=== PATIENT | female | born 1980 | race Caucasian/White ===

== ENCOUNTER 2017-10-09 09:23 | Outpatient (CLI) | payer MEDICARE, BC ==
--- NOTE | 2017-10-09 11:54 | CT ---
CT BRAIN NONCONTRAST: DATE: 10-09-17 TIME: 9:30 a.m. HISTORY: 37-year-old female with headache. Follow up [employer] shunt. History of multiple shunt revisions. 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 COMPARISON: 01-18-15, 04-16-14, 03-23-11. FINDINGS: Between 03-23-11 and 04-16-14, the ventricles became smaller in volume, becoming collapsed on 04-16-14, a nd remaining that way on 01-18-15, raising the possibility of over-shunting. Currently, the lateral ve ntricles are slightly less collapsed than they were on 01-18-15, although the frontal horns do remain narrowed, especially the right. Again noted is the nodular, periventricular heterotopic gómez matter l ining the trigones and occipital horns of the lateral ventricles bilaterally. The fourth ventricle is within normal limits in size. The basal cisterns are patent and clear. There is an asymmetrical bronwyn cisterna magna. There is no interval change in positions of the two [employer] shunt catheters. One of them enters through a right frontal zee hole, with distal tip in the right frontal horn, very close to th e foramen of [place]ro, slightly to the right of midline. The other one enters through a right temporopar ietal zee hole, with distal tip close to the lateral edge of the trigone of the right lateral ventri carmina, probably slightly outside of it. There is no acute intraaxial or extraaxial hemorrhage. No mass effect or midline shift. No additional changes to the calvarium. The visualized portions of the paranasal sinuses and the bilateral tympano mastoid cavities are grossly clear. IMPRESSION: 1. Two right sided ventriculoperitoneal shunt catheters. The distal tip of the more anterior one is i ntraventricular, while the most posterior one is probably extraventricular. 2. No hydrocephalus; no evidence of shunt malfunction. 3. The lateral ventricles are now slightly less collapsed then they were on 01-18-15. 4. Periventricular gómez matter heterotopia. SAI Crandall POS: [facility]
--- NOTE | 2017-10-09 11:56 | RAD ---
SHUNTOGRAM SERIES: History: G91.9 hydrocephalus. Technique: Skull AP, skull lateral, cervical spine AP, chest AP, and abdomen upright. FINDINGS: Shunt catheter is in place. No evidence of fracture. No kinking of catheter. The distal catheter tip is not well seen as the pelvis is excluded from the examination. IMPRESSION: Likely intact shunt catheter tubing, difficult to fully evaluate on the chest radiograph. The tip is not well imaged in the pelvis. Follow up pelvis radiograph is recommended. POS: [facility]
== END 2017-10-09 09:24 | disposition home or self-care (01) ==
LOC: TBSIIMAG 09:23
PROVIDERS: ATTEND Surgery
DX: G91.9 Hydrocephalus, unspecified (principal); Q04.8 Other specified congenital malformations of brain; Z98.2 Presence of cerebrospinal fluid drainage device
CPT/HCPCS: 70450; 75809

== ENCOUNTER 2022-04-03 10:35 | Inpatient (IN) | payer MEDICARE, BC ==
[2022-04-03 12:07] LABS: ALT (SGPT) 11 U/L (8-55); AST (SGOT) 9 U/L (5-34); Albumin 3.2 g/dL (3.5-5.0); Alkaline Phosphatase 71 U/L (40-110); Anion Gap 14 mmol/L (10-20); BUN (Urea Nitrogen) 30 mg/dL (7.0-18.7); Bilirubin, Total Less than 0.2 mg/dL (0.2-1.2); Calc. Creatinine Clearance 0 mL/min (70-130); Calcium 8.6 mg/dL (7.8-10.44); Carbon Dioxide 24 mmol/L (22-29); Chloride 101 mmol/L (98-107); Globulin 2.7 g/dL (2.4-3.5); Glucose 106 mg/dL (70-105); Potassium 4.1 mmol/L (3.5-5.1); Protein, Total 5.9 g/dL (6.0-8.3); Sodium 135 mmol/L (136-145)
[2022-04-03 12:32] LABS: Hemoglobin 4.8 g/dL (12.0-16.0); Mean Corpuscular HGB CONC 33.6 g/dL (32.0-36.0); Mean Corpuscular Hemoglobin 27.2 pg (27.0-31.0); Mean Corpuscular Volume 80.8 fL (78.0-98.0); Mean Platelet Volume 6.5 fL (7.4-10.4); Platelet Count 385 thou/uL (130-400); RBC Distribution Width 15.3 % (11.5-14.5); Red Blood Cell (RBC) Count 1.77 mill/uL (4.20-5.40); Reflex for Review?? YES; White Blood Cell (WBC) Count 5.9 thou/uL (4.8-10.8)
[2022-04-03 12:35] LABS: #Lymphocytes 0.9 thou/uL (1.20-3.40); #Monocytes 0.3 thou/uL (0.11-0.59); #Neutrophils 4.6 thou/uL (1.40-6.50); %Basophils 0.3 % (0.0-1.0); %Eosinophils 0.8 % (0.0-10.0); %Lymphocytes 15.5 % (21.0-51.0); %Monocytes 5.6 % (0.0-10.0); %Neutrophils 77.8 % (42.0-75.0); MDiff Complete? YES; Platelet Morphology Comment Appears Adequate; Polychromasia SLIGHT = 2-3 cells (100X) (0-2/hpf)
[2022-04-03] MEDS ORDERED: Pantoprazole 40 MG VIAL ONE (13:55)
[2022-04-03 14:46] LABS: Reticulocyte Count 4.5 % (0.5-1.5)
[2022-04-03 15:01] LABS: BHCG - Serum Negative (NEGATIVE); Pregs Control Background? CLEAR/WHITE (CLR/WHITE); Pregs Control Bar Appear? YES (CONTROL BAR)
[2022-04-03 15:14] LABS: Iron 107 ug/dL (50-170); Iron Binding Capacity, Total 286 mcg/dL (265-497)
[2022-04-03 15:32] LABS: Ferritin 14.99 ng/mL (10-291); Thyroid Stimulating Hormone 1.8523 uIU/mL (0.35-4.94)
[2022-04-03] MEDS ORDERED: Folic Acid 1 MG TAB PO SCH (16:30)
[2022-04-03 16:51] LABS: SARS-CoV-2 NAA Rapid Test Not Detected (NotDetected)
[2022-04-03] MEDS ORDERED: GoLYTELY 4,000 ml Bottle PO SCH (20:30)
[2022-04-03] MEDS: levETIRAcetam 500 MG TAB PO SCH (20:34)
[2022-04-03] MEDS: lamoTRIgine 100 MG TAB PO SCH (20:35)
[2022-04-03] MEDS: Lorazepam 1 MG TAB PO PRN (20:35)
[2022-04-03] MEDS: lamoTRIgine 25 MG TAB PO SCH (20:35)
[2022-04-03 23:01] LABS: Hemoglobin 7.6 g/dL (12.0-16.0)
[2022-04-04 02:15] LABS: Platelet Count 315 thou/uL (130-400)
[2022-04-04 04:31] LABS: #Basophils 0.1 thou/uL (0.0-0.2); #Eosinphils 0.1 thou/uL (0.0-0.7); #Monocytes 0.4 thou/uL (0.11-0.59); #Neutrophils 5.5 thou/uL (1.40-6.50); %Basophils 0.7 % (0.0-1.0); %Eosinophils 0.9 % (0.0-10.0); %Lymphocytes 14.6 % (21.0-51.0); %Monocytes 5.1 % (0.0-10.0); %Neutrophils 78.6 % (42.0-75.0); Hemoglobin 7.9 g/dL (12.0-16.0); Mean Corpuscular HGB CONC 33.3 g/dL (32.0-36.0); Mean Corpuscular Hemoglobin 28.2 pg (27.0-31.0); Mean Corpuscular Volume 84.7 fL (78.0-98.0); Mean Platelet Volume 6.6 fL (7.4-10.4); Platelet Count 338 thou/uL (130-400); RBC Distribution Width 14.9 % (11.5-14.5)
[2022-04-04 04:58] LABS: Anion Gap 17 mmol/L (10-20); BUN (Urea Nitrogen) 19 mg/dL (7.0-18.7); Calc. Creatinine Clearance 101 mL/min (70-130); Calcium 8.6 mg/dL (7.8-10.44); Carbon Dioxide 22 mmol/L (22-29); Chloride 102 mmol/L (98-107); Glucose 105 mg/dL (70-105); Potassium 4.3 mmol/L (3.5-5.1); Sodium 137 mmol/L (136-145)
[2022-04-04] MEDS ORDERED: GoLYTELY 4,000 ml Bottle PO SCH (07:00)
[2022-04-04] MEDS ORDERED: Iopamidol-370 76% 500 ML 1 ML ONE (09:02)
[2022-04-04] MEDS: Folic Acid 1 MG TAB PO SCH (10:03)
[2022-04-04] MEDS: lamoTRIgine 100 MG TAB PO SCH ×2 (10:03→21:51)
[2022-04-04] MEDS: lamoTRIgine 25 MG TAB PO SCH ×2 (10:04→21:51)
[2022-04-04] MEDS ORDERED: Non-Formulary Item 1 EACH (Cyclobenzaprine Hcl [Cyclobenzaprine Hcl] 5 MG Tablet) PO PRN (10:14)
[2022-04-04] MEDS ORDERED: Cyclobenzaprine 10 MG TAB PO PRN (10:18)
[2022-04-04] MEDS ORDERED: Fentanyl 100 MCG/2 ML VIAL ONE (12:13)
[2022-04-04] MEDS ORDERED: Lidocaine 1% PF 5 ML VIAL ONE (12:25)
[2022-04-04] MEDS ORDERED: PROPOFOL 200 MG/20 ML VIAL ONE (12:25)
[2022-04-04] MEDS: Pantoprazole 80 MG, Admixture Fee 1 EACH in Sodium Chloride 0.9% 100 ML IVPB SCH (16:13)
[2022-04-04] MEDS: levETIRAcetam 500 MG TAB PO SCH ×2 (16:16→21:51)
[2022-04-04] MEDS: Lorazepam 1 MG TAB PO PRN (21:51)
[2022-04-04] MEDS: Acetaminophen 325 MG TAB PO PRN (22:03)
[2022-04-05] MEDS: Pantoprazole 80 MG, Admixture Fee 1 EACH in Sodium Chloride 0.9% 100 ML IVPB SCH ×2 (01:52→16:26)
[2022-04-05 04:20] LABS: Hemoglobin 6.6 g/dL (12.0-16.0)
[2022-04-05] MEDS: Folic Acid 1 MG TAB PO SCH (10:10)
[2022-04-05] MEDS: levETIRAcetam 500 MG TAB PO SCH ×2 (10:11→20:02)
[2022-04-05] MEDS: lamoTRIgine 100 MG TAB PO SCH ×2 (10:11→20:02)
[2022-04-05] MEDS: lamoTRIgine 25 MG TAB PO SCH ×2 (10:11→20:03)
[2022-04-05 10:23] LABS: Hemoglobin 8.4 g/dL (12.0-16.0); Platelet Count 243 thou/uL (130-400)
[2022-04-05 17:08] LABS: Hemoglobin 8.2 g/dL (12.0-16.0)
[2022-04-05] MEDS: Acetaminophen 325 MG TAB PO PRN (22:30)
[2022-04-05] MEDS: Lorazepam 1 MG TAB PO PRN (22:30)
[2022-04-06] MEDS: Pantoprazole 80 MG, Admixture Fee 1 EACH in Sodium Chloride 0.9% 100 ML IVPB SCH (02:28)
[2022-04-06 06:13] LABS: #Eosinphils 0.1 thou/uL (0.0-0.7); #Lymphocytes 0.7 thou/uL (1.20-3.40); #Monocytes 0.2 thou/uL (0.11-0.59); #Neutrophils 2.4 thou/uL (1.40-6.50); %Basophils 0.1 % (0.0-1.0); %Eosinophils 2.2 % (0.0-10.0); %Lymphocytes 21.8 % (21.0-51.0); %Monocytes 5.5 % (0.0-10.0); %Neutrophils 70.4 % (42.0-75.0); Hemoglobin 8.1 g/dL (12.0-16.0); Mean Corpuscular HGB CONC 34.1 g/dL (32.0-36.0); Mean Corpuscular Hemoglobin 29.9 pg (27.0-31.0); Mean Corpuscular Volume 87.8 fL (78.0-98.0); Mean Platelet Volume 6.2 fL (7.4-10.4); Platelet Count 271 thou/uL (130-400); RBC Distribution Width 14.6 % (11.5-14.5); Red Blood Cell (RBC) Count 2.72 mill/uL (4.20-5.40); White Blood Cell (WBC) Count 3.4 thou/uL (4.8-10.8)
[2022-04-06 06:33] LABS: Anion Gap 12 mmol/L (10-20); BUN (Urea Nitrogen) 9 mg/dL (7.0-18.7); Calc. Creatinine Clearance 106 mL/min (70-130); Calcium 8.4 mg/dL (7.8-10.44); Carbon Dioxide 26 mmol/L (22-29); Chloride 104 mmol/L (98-107); Glucose 79 mg/dL (70-105); Potassium 3.6 mmol/L (3.5-5.1); Sodium 138 mmol/L (136-145)
[2022-04-06] MEDS ORDERED: Sodium Chloride 0.9% 1,000 ML IV SCH ×2 (07:45→23:59)
[2022-04-06 08:15] LABS: #Eosinphils 0.1 thou/uL (0.0-0.7); #Lymphocytes 0.6 thou/uL (1.20-3.40); #Monocytes 0.2 thou/uL (0.11-0.59); #Neutrophils 3.2 thou/uL (1.40-6.50); %Basophils 0.6 % (0.0-1.0); %Eosinophils 1.4 % (0.0-10.0); %Lymphocytes 14.9 % (21.0-51.0); %Monocytes 5.8 % (0.0-10.0); %Neutrophils 77.3 % (42.0-75.0); Hemoglobin 6.6 g/dL (12.0-16.0); Mean Corpuscular HGB CONC 33.7 g/dL (32.0-36.0); Mean Corpuscular Hemoglobin 29.8 pg (27.0-31.0); Mean Corpuscular Volume 88.2 fL (78.0-98.0); Mean Platelet Volume 6.2 fL (7.4-10.4); Platelet Count 244 thou/uL (130-400); RBC Distribution Width 14.6 % (11.5-14.5); Red Blood Cell (RBC) Count 2.21 mill/uL (4.20-5.40); White Blood Cell (WBC) Count 4.1 thou/uL (4.8-10.8)
[2022-04-06] MEDS: lamoTRIgine 25 MG TAB PO SCH ×2 (08:28→21:15)
[2022-04-06] MEDS: lamoTRIgine 100 MG TAB PO SCH ×2 (08:28→21:15)
[2022-04-06] MEDS: Folic Acid 1 MG TAB PO SCH (08:28)
[2022-04-06] MEDS: levETIRAcetam 500 MG TAB PO SCH ×2 (08:28→21:15)
[2022-04-06] MEDS ORDERED: diphenhydrAMINE 50 MG/ML VIAL IVP PRN (10:39)
[2022-04-06] MEDS: Albumin 25% 25 GM/100 ML BOT IVPB SCH (10:44)
[2022-04-06] MEDS: Sodium Chloride 0.9% 1,000 ML IV SCH ×2 (10:44→22:15)
[2022-04-06] MEDS ORDERED: PROPOFOL 200 MG/20 ML VIAL ONE (13:44)
[2022-04-06] MEDS ORDERED: Lidocaine 1% PF 5 ML VIAL ONE (13:44)
[2022-04-06] MEDS ORDERED: Ondansetron PF 4 MG/2 ML Vial ONE (13:44)
[2022-04-06] MEDS ORDERED: Succinylcholine 200 MG/10 ml SYRINGE FS ONE (13:44)
[2022-04-06] MEDS ORDERED: Calcium Chloride 1 GM/10 ML Abboject SYRINGE ONE (13:56)
[2022-04-06] MEDS ORDERED: EPINEPHrine 1 MG/10 ML Abboject SYRINGE ONE (13:56)
[2022-04-06] MEDS ORDERED: ePHEDrine 50 MG/ML VIAL ONE (13:56)
[2022-04-06] MEDS ORDERED: Rocuronium Bromide 10 MG/ML (10ML VIAL) ONE (13:56)
[2022-04-06] MEDS ORDERED: Iron, Sodium Ferric Gluconate 250 MG in Sodium Chloride 0.9% 250 ML 250 ML IVPB SCH (14:00)
[2022-04-06] MEDS ORDERED: fentaNYL Citrate/PF 100 MCG/2 ML SYRINGE ONE (15:05)
[2022-04-06] MEDS ORDERED: Midazolam HCl 2 mg/2 ml Vial ONE (16:59)
[2022-04-06] MEDS ORDERED: Sodium Bicarb 50 MEQ/50 ML Abboject 8.4% SYRINGE ONE (16:59)
[2022-04-06] MEDS ORDERED: Propofol BOLUS 1,000 MG/100 ML VIAL IV PRN (18:45)
[2022-04-06] MEDS ORDERED: Propofol 1,000 MG/100 ML VIAL IV PRN (18:45)
[2022-04-06] MEDS ORDERED: Morphine 2 MG/ML VIAL SLOW IVP PRN (18:45)
[2022-04-06] MEDS ORDERED: Ventilator Sedation Protocol 1 EACH FS SCH (18:45)
[2022-04-06] MEDS ORDERED: DISCONTINUE PREVIOUS NARCOTIC PAIN MEDICATIONS AND BENZODIAZEPINES FS SCH (18:45)
[2022-04-06] MEDS: Lorazepam 2 MG/ML VIAL SLOW IVP PRN ×2 (18:45→22:42)
[2022-04-06] MEDS ORDERED: Fentanyl BOLUS 250 ML IVPB PRN (18:45)
[2022-04-06] MEDS: fentaNYL Citrate-0.9 % NaCl/PF 100 ML IV SCH (18:46)
[2022-04-06 20:04] LABS: #Lymphocytes 0.4 thou/uL (1.20-3.40); #Monocytes 0.2 thou/uL (0.11-0.59); #Neutrophils 5.4 thou/uL (1.40-6.50); %Basophils 0.1 % (0.0-1.0); %Eosinophils 0.8 % (0.0-10.0); %Lymphocytes 6.7 % (21.0-51.0); %Monocytes 3.6 % (0.0-10.0); %Neutrophils 88.8 % (42.0-75.0); Hemoglobin 11.7 g/dL (12.0-16.0); Mean Corpuscular HGB CONC 33.7 g/dL (32.0-36.0); Mean Corpuscular Hemoglobin 30.7 pg (27.0-31.0); Mean Corpuscular Volume 91.1 fL (78.0-98.0); Mean Platelet Volume 6.9 fL (7.4-10.4); Platelet Count 193 thou/uL (130-400); RBC Distribution Width 13.5 % (11.5-14.5); Red Blood Cell (RBC) Count 3.82 mill/uL (4.20-5.40); White Blood Cell (WBC) Count 6.1 thou/uL (4.8-10.8)
[2022-04-06 20:22] LABS: ALT (SGPT) 77 U/L (8-55); AST (SGOT) 109 U/L (5-34); Alkaline Phosphatase 38 U/L (40-110); Anion Gap 17 mmol/L (10-20); BUN (Urea Nitrogen) 14 mg/dL (7.0-18.7); Bilirubin, Total 1.5 mg/dL (0.2-1.2); Calc. Creatinine Clearance 109 mL/min (70-130); Calcium 8.1 mg/dL (7.8-10.44); Carbon Dioxide 20 mmol/L (22-29); Chloride 108 mmol/L (98-107); Globulin 1.5 g/dL (2.4-3.5); Glucose 135 mg/dL (70-105); Potassium 3.2 mmol/L (3.5-5.1); Protein, Total 4.5 g/dL (6.0-8.3); Sodium 142 mmol/L (136-145)
[2022-04-06] MEDS ORDERED: Sodium Chloride 0.9% (PF) 10 ML VIAL FS PRN (20:45)
[2022-04-06] MEDS ORDERED: Pantoprazole 40 MG VIAL IVP SCH (21:00)
[2022-04-06] MEDS: Lactated Ringer's 1,000 ML IV SCH (21:16)
[2022-04-06] MEDS ORDERED: ceFAZolin 2 GM/Dextrose 50 ML 2 GM in Premix Bag 1 BAG IVPB SCH (22:00)
[2022-04-06] MEDS: CEFAZOLIN 2 GM in Sodium Chloride 0.9% 100 ML IVPB SCH (22:01)
[2022-04-06] MEDS: Iron, Sodium Ferric Gluconate 250 MG in Sodium Chloride 0.9% 250 ML 250 ML IVPB SCH (22:12)
[2022-04-06 22:22] LABS: #Lymphocytes 0.5 thou/uL (1.20-3.40); #Monocytes 0.4 thou/uL (0.11-0.59); #Neutrophils 6.5 thou/uL (1.40-6.50); %Basophils 0.5 % (0.0-1.0); %Eosinophils 0.3 % (0.0-10.0); %Lymphocytes 6.5 % (21.0-51.0); %Monocytes 5.6 % (0.0-10.0); %Neutrophils 87.1 % (42.0-75.0); Hemoglobin 11.7 g/dL (12.0-16.0); Mean Corpuscular HGB CONC 35.2 g/dL (32.0-36.0); Mean Corpuscular Hemoglobin 31.8 pg (27.0-31.0); Mean Corpuscular Volume 90.4 fL (78.0-98.0); Mean Platelet Volume 6.6 fL (7.4-10.4); Platelet Count 172 thou/uL (130-400); RBC Distribution Width 13.4 % (11.5-14.5); Red Blood Cell (RBC) Count 3.67 mill/uL (4.20-5.40); White Blood Cell (WBC) Count 7.4 thou/uL (4.8-10.8)
[2022-04-06] MEDS ORDERED: Norepinephrine 8 MG/0.9% NS 250 ML IVPB SCH (23:45)
[2022-04-07] MEDS: Albumin 25% 25 GM/100 ML BOT IVPB SCH ×6 (00:12→23:06)
[2022-04-07 01:01] LABS: Hemoglobin 13.1 g/dL (12.0-16.0)
[2022-04-07] MEDS: Lactated Ringer's 1,000 ML IV SCH ×4 (02:30→23:46)
[2022-04-07 04:20] LABS: #Lymphocytes 0.4 thou/uL (1.20-3.40); #Monocytes 0.3 thou/uL (0.11-0.59); #Neutrophils 5.2 thou/uL (1.40-6.50); %Basophils 0.3 % (0.0-1.0); %Eosinophils 0.3 % (0.0-10.0); %Lymphocytes 6.3 % (21.0-51.0); %Neutrophils 88.2 % (42.0-75.0); Hemoglobin 10.9 g/dL (12.0-16.0); Mean Corpuscular HGB CONC 34.9 g/dL (32.0-36.0); Mean Corpuscular Hemoglobin 31.4 pg (27.0-31.0); Mean Platelet Volume 7.1 fL (7.4-10.4); Platelet Count 155 thou/uL (130-400); RBC Distribution Width 13.8 % (11.5-14.5); Red Blood Cell (RBC) Count 3.47 mill/uL (4.20-5.40); White Blood Cell (WBC) Count 5.9 thou/uL (4.8-10.8)
[2022-04-07 04:42] LABS: ALT (SGPT) 61 U/L (8-55); AST (SGOT) 79 U/L (5-34); Albumin 2.9 g/dL (3.5-5.0); Alkaline Phosphatase 28 U/L (40-110); Anion Gap 17 mmol/L (10-20); BUN (Urea Nitrogen) 12 mg/dL (7.0-18.7); Bilirubin, Total 0.7 mg/dL (0.2-1.2); Calc. Creatinine Clearance 104 mL/min (70-130); Calcium 7.7 mg/dL (7.8-10.44); Carbon Dioxide 21 mmol/L (22-29); Chloride 109 mmol/L (98-107); Globulin 1.1 g/dL (2.4-3.5); Glucose 115 mg/dL (70-105); Potassium 3.7 mmol/L (3.5-5.1); Sodium 143 mmol/L (136-145)
[2022-04-07] MEDS: CEFAZOLIN 2 GM in Sodium Chloride 0.9% 100 ML IVPB SCH ×3 (06:19→22:53)
[2022-04-07] MEDS: fentaNYL Citrate-0.9 % NaCl/PF 100 ML IV SCH (06:28)
[2022-04-07 07:44] LABS: Actual Bicarbonate (HCO3a) 23.9 mEq/L (22-28); Base Excess (BEa) -0.5 mEq/L (-2.0 to +3.0); CO2 Tension 38.2 mmHg (35.0-45.0); Calcium, Ionized (arterial) 1.07 mmol/L (1.12-1.30); Carboxyhemoglobin (COHb) 0.1 gm% (0.0-3.0); Hemoglobin (Hb) 9.3 g/dL (12.0-16.0); O2 Tension (PaO2), arterial 118.3 mmHg (80.0-100.0); Potassium - ABG Lab 3.42 mmol/L (3.70-5.30); pH, Arterial 7.41 (7.35-7.45)
[2022-04-07 07:56] LABS: Puncture Site Arterial Line
[2022-04-07] MEDS: Pantoprazole 40 MG VIAL IVP SCH (08:24)
[2022-04-07] MEDS: levETIRAcetam 500 MG TAB PO SCH ×2 (08:24→20:49)
[2022-04-07] MEDS: Folic Acid 1 MG TAB PO SCH (08:25)
[2022-04-07] MEDS ORDERED: Acetaminophen 650 MG Suppository PR PRN (11:43)
[2022-04-07] MEDS: lamoTRIgine 25 MG TAB PO SCH ×2 (11:50→20:49)
[2022-04-07] MEDS: lamoTRIgine 100 MG TAB PO SCH ×2 (11:50→20:49)
[2022-04-07] MEDS: Acetaminophen 500 MG TAB PER TUBE PRN (11:58)
[2022-04-07 16:08] LABS: Hemoglobin 8.2 g/dL (12.0-16.0); Platelet Count 150 thou/uL (130-400)
[2022-04-07] MEDS ORDERED: Fentanyl 100 MCG/2 ML VIAL SLOW IVP PRN (16:57)
[2022-04-07] MEDS ORDERED: diphenhydrAMINE 50 MG/ML VIAL IM PRN (19:52)
[2022-04-07] MEDS ORDERED: Ondansetron PF 4 MG/2 ML Vial IVP PRN (19:52)
[2022-04-07] MEDS ORDERED: Zolpidem Tartrate 5 MG TAB PO PRN (19:52)
[2022-04-07] MEDS ORDERED: diphenhydrAMINE 50 MG/ML VIAL IVP PRN (19:52)
[2022-04-07] MEDS ORDERED: diphenhydrAMINE 25 MG CAP PO PRN (19:52)
[2022-04-07] MEDS ORDERED: fentaNYL Citrate/PF 2,000 MCG in Sodium Chloride 0.9% 60 ML IV PRN (19:52)
[2022-04-07] MEDS ORDERED: Naloxone HCl 0.4 mg/ml Vial IV PRN (19:52)
[2022-04-07] MEDS ORDERED: Promethazine HCl 25 MG/ML VIAL IM PRN (19:52)
[2022-04-07] MEDS ORDERED: Communication Order-Pharmacy FS PRN (20:00)
[2022-04-07] MEDS: Enoxaparin Sodium 40 MG/0.4 ML SYRINGE SC SCH (20:49)
[2022-04-07] MEDS: Iron, Sodium Ferric Gluconate 250 MG in Sodium Chloride 0.9% 250 ML 250 ML IVPB SCH (21:16)
[2022-04-08] MEDS: CEFAZOLIN 2 GM in Sodium Chloride 0.9% 100 ML IVPB SCH ×3 (05:17→21:11)
[2022-04-08] MEDS: Lactated Ringer's 1,000 ML IV SCH ×5 (05:44→17:47)
[2022-04-08 06:01] LABS: #Lymphocytes 0.5 thou/uL (1.20-3.40); #Monocytes 0.3 thou/uL (0.11-0.59); #Neutrophils 5.7 thou/uL (1.40-6.50); %Basophils 0.1 % (0.0-1.0); %Eosinophils 0.2 % (0.0-10.0); %Lymphocytes 7.2 % (21.0-51.0); %Monocytes 5.2 % (0.0-10.0); %Neutrophils 87.2 % (42.0-75.0); Hemoglobin 9.1 g/dL (12.0-16.0); Mean Corpuscular HGB CONC 35.2 g/dL (32.0-36.0); Mean Corpuscular Hemoglobin 32.3 pg (27.0-31.0); Mean Corpuscular Volume 91.9 fL (78.0-98.0); Mean Platelet Volume 7.3 fL (7.4-10.4); Platelet Count 130 thou/uL (130-400); RBC Distribution Width 14.2 % (11.5-14.5); Red Blood Cell (RBC) Count 2.81 mill/uL (4.20-5.40); White Blood Cell (WBC) Count 6.6 thou/uL (4.8-10.8)
[2022-04-08 07:01] LABS: ALT (SGPT) 35 U/L (8-55); AST (SGOT) 62 U/L (5-34); Albumin 3.8 g/dL (3.5-5.0); Alkaline Phosphatase 33 U/L (40-110); Anion Gap 13 mmol/L (10-20); BUN (Urea Nitrogen) 6 mg/dL (7.0-18.7); Bilirubin, Total 1.3 mg/dL (0.2-1.2); Calc. Creatinine Clearance 125 mL/min (70-130); Calcium 8.8 mg/dL (7.8-10.44); Carbon Dioxide 27 mmol/L (22-29); Chloride 104 mmol/L (98-107); Globulin 1.5 g/dL (2.4-3.5); Glucose 84 mg/dL (70-105); Potassium 3.1 mmol/L (3.5-5.1); Protein, Total 5.3 g/dL (6.0-8.3); Sodium 141 mmol/L (136-145)
[2022-04-08] MEDS: levETIRAcetam 500 MG TAB PO SCH ×2 (08:53→21:13)
[2022-04-08] MEDS: lamoTRIgine 25 MG TAB PO SCH ×2 (08:53→21:28)
[2022-04-08] MEDS: lamoTRIgine 100 MG TAB PO SCH ×2 (08:53→21:14)
[2022-04-08] MEDS: Folic Acid 1 MG TAB PO SCH (08:53)
[2022-04-08] MEDS: Pantoprazole 40 MG VIAL IVP SCH (08:54)
[2022-04-08 10:13] LABS: Magnesium 1.7 mg/dL (1.6-2.6)
[2022-04-08] MEDS ORDERED: Potassium Chloride 20 MEQ TAB PO SCH (16:00)
[2022-04-08] MEDS: Enoxaparin Sodium 40 MG/0.4 ML SYRINGE SC SCH (21:07)
[2022-04-08] MEDS: Melatonin 3 MG TAB PO PRN (21:13)
[2022-04-08] MEDS: Acetaminophen 500 MG TAB PER TUBE PRN (21:14)
[2022-04-08] MEDS: Loratadine 10 MG TAB PO SCH (21:14)
[2022-04-08] MEDS: Iron, Sodium Ferric Gluconate 250 MG in Sodium Chloride 0.9% 250 ML 250 ML IVPB SCH (21:28)
[2022-04-09] MEDS: CEFAZOLIN 2 GM in Sodium Chloride 0.9% 100 ML IVPB SCH ×3 (05:31→21:11)
[2022-04-09 06:43] LABS: #Lymphocytes 0.5 thou/uL (1.20-3.40); #Monocytes 0.2 thou/uL (0.11-0.59); #Neutrophils 5.4 thou/uL (1.40-6.50); %Basophils 0.1 % (0.0-1.0); %Eosinophils 0.3 % (0.0-10.0); %Lymphocytes 7.6 % (21.0-51.0); %Monocytes 3.9 % (0.0-10.0); Hemoglobin 9.2 g/dL (12.0-16.0); Mean Corpuscular HGB CONC 33.6 g/dL (32.0-36.0); Mean Corpuscular Hemoglobin 31.4 pg (27.0-31.0); Mean Corpuscular Volume 93.6 fL (78.0-98.0); Platelet Count 138 thou/uL (130-400); RBC Distribution Width 14.3 % (11.5-14.5); Red Blood Cell (RBC) Count 2.92 mill/uL (4.20-5.40); White Blood Cell (WBC) Count 6.2 thou/uL (4.8-10.8)
[2022-04-09 07:09] LABS: ALT (SGPT) 57 U/L (8-55); AST (SGOT) 84 U/L (5-34); Albumin 3.5 g/dL (3.5-5.0); Alkaline Phosphatase 56 U/L (40-110); Anion Gap 14 mmol/L (10-20); BUN (Urea Nitrogen) 6 mg/dL (7.0-18.7); Bilirubin, Total 0.8 mg/dL (0.2-1.2); Calc. Creatinine Clearance 130 mL/min (70-130); Calcium 9.2 mg/dL (7.8-10.44); Carbon Dioxide 26 mmol/L (22-29); Chloride 102 mmol/L (98-107); Globulin 2.1 g/dL (2.4-3.5); Glucose 83 mg/dL (70-105); Protein, Total 5.6 g/dL (6.0-8.3); Sodium 139 mmol/L (136-145)
[2022-04-09] MEDS ORDERED: Potassium Chloride 10 MEQ in Premix Bag 1 BAG IVPB SCH ×2 (09:00)
[2022-04-09] MEDS: levETIRAcetam 500 MG TAB PO SCH ×2 (10:36→21:11)
[2022-04-09] MEDS: Folic Acid 1 MG TAB PO SCH (10:37)
[2022-04-09] MEDS: Pantoprazole 40 MG VIAL IVP SCH (10:38)
[2022-04-09] MEDS: lamoTRIgine 25 MG TAB PO SCH ×2 (10:52→21:11)
[2022-04-09] MEDS: Lactated Ringer's 1,000 ML IV SCH ×2 (11:02→14:17)
[2022-04-09] MEDS: Potassium Chloride 20 MEQ TAB PO SCH ×2 (14:04→18:20)
[2022-04-09] MEDS: lamoTRIgine 100 MG TAB PO SCH ×2 (14:12→21:10)
[2022-04-09] MEDS ORDERED: CAFFEINE PO PRN (18:56)
[2022-04-09] MEDS ORDERED: ASPIRIN PO PRN (18:56)
[2022-04-09] MEDS ORDERED: Gabapentin 300 MG CAP PO SCH (21:00)
[2022-04-09] MEDS: Enoxaparin Sodium 40 MG/0.4 ML SYRINGE SC SCH (21:09)
[2022-04-09] MEDS: Loratadine 10 MG TAB PO SCH (21:11)
[2022-04-09] MEDS: Melatonin 3 MG TAB PO PRN (21:11)
[2022-04-09] MEDS: HYDROcodone/Acetaminophen 5/325 mg Tablet PO PRN (21:22)
[2022-04-09] MEDS ORDERED: Gabapentin 100 MG CAP PO SCH (21:45)
[2022-04-10] MEDS ORDERED: Ondansetron PF 4 MG/2 ML Vial IVP PRN (03:19)
[2022-04-10] MEDS: HYDROcodone/Acetaminophen 5/325 mg Tablet PO PRN ×2 (03:40→08:56)
[2022-04-10] MEDS: CEFAZOLIN 2 GM in Sodium Chloride 0.9% 100 ML IVPB SCH ×3 (06:01→21:42)
[2022-04-10 08:08] LABS: Hemoglobin 11.2 g/dL (12.0-16.0)
[2022-04-10 08:33] LABS: Anion Gap 17 mmol/L (10-20); BUN (Urea Nitrogen) 6 mg/dL (7.0-18.7); Calc. Creatinine Clearance 161 mL/min (70-130); Calcium 9.2 mg/dL (7.8-10.44); Carbon Dioxide 29 mmol/L (22-29); Chloride 95 mmol/L (98-107); Glucose 109 mg/dL (70-105); Potassium 3.1 mmol/L (3.5-5.1); Sodium 138 mmol/L (136-145)
[2022-04-10] MEDS: Folic Acid 1 MG TAB PO SCH (08:57)
[2022-04-10] MEDS: lamoTRIgine 100 MG TAB PO SCH ×2 (08:57→21:42)
[2022-04-10] MEDS: levETIRAcetam 500 MG TAB PO SCH ×2 (08:57→21:41)
[2022-04-10] MEDS: lamoTRIgine 25 MG TAB PO SCH ×2 (08:58→21:42)
[2022-04-10] MEDS ORDERED: Gabapentin 100 MG CAP PO SCH (09:00)
[2022-04-10] MEDS ORDERED: Polyethylene Glycol 3350 17 GM Packet PO SCH (09:00)
[2022-04-10] MEDS ORDERED: Potassium Chloride 20 MEQ TAB PO SCH (10:00)
[2022-04-10] MEDS ORDERED: Ketorolac Tromethamine 30 MG/ML VIAL IVP SCH ×2 (10:00→12:00)
[2022-04-10] MEDS ORDERED: Potassium Chloride 40 MEQ in Premix Bag 1 BAG IVPB SCH (10:00)
[2022-04-10] MEDS ORDERED: Morphine 4 MG/ML VIAL SLOW IVP SCH (10:00)
[2022-04-10] MEDS: Potassium Chloride 20 MEQ in Lactated Ringer's 1,000 ML IV SCH ×2 (12:08→22:00)
[2022-04-10] MEDS: Loratadine 10 MG TAB PO SCH (21:41)
[2022-04-10] MEDS: Melatonin 3 MG TAB PO PRN (21:41)
[2022-04-10] MEDS: Morphine 4 MG/ML VIAL SLOW IVP PRN (21:42)
[2022-04-11] MEDS: Potassium Chloride 20 MEQ in Lactated Ringer's 1,000 ML IV SCH ×2 (05:10→15:50)
[2022-04-11] MEDS: CEFAZOLIN 2 GM in Sodium Chloride 0.9% 100 ML IVPB SCH ×3 (05:10→21:53)
[2022-04-11 05:40] LABS: Hemoglobin 8.7 g/dL (12.0-16.0)
[2022-04-11 05:59] LABS: Anion Gap 13 mmol/L (10-20); BUN (Urea Nitrogen) 11 mg/dL (7.0-18.7); Calc. Creatinine Clearance 152 mL/min (70-130); Calcium 8.4 mg/dL (7.8-10.44); Carbon Dioxide 30 mmol/L (22-29); Chloride 97 mmol/L (98-107); Glucose 83 mg/dL (70-105); Potassium 3.4 mmol/L (3.5-5.1); Sodium 137 mmol/L (136-145)
[2022-04-11] MEDS: levETIRAcetam 500 MG TAB PO SCH ×2 (08:21→21:52)
[2022-04-11] MEDS: lamoTRIgine 25 MG TAB PO SCH ×2 (08:22→21:52)
[2022-04-11] MEDS: Folic Acid 1 MG TAB PO SCH (08:22)
[2022-04-11] MEDS: Pantoprazole 40 MG VIAL IVP SCH (08:23)
[2022-04-11] MEDS: lamoTRIgine 100 MG TAB PO SCH ×2 (08:27→21:51)
[2022-04-11] MEDS: Morphine 4 MG/ML VIAL SLOW IVP PRN ×2 (10:56→22:05)
[2022-04-11] MEDS: Ketorolac Tromethamine 30 MG/ML VIAL IVP PRN (17:16)
[2022-04-11] MEDS: Melatonin 3 MG TAB PO PRN (21:51)
[2022-04-11] MEDS: Loratadine 10 MG TAB PO SCH (21:52)
[2022-04-11] MEDS: Acetaminophen 500 MG TAB PO PRN (21:53)
[2022-04-12] MEDS: Potassium Chloride 20 MEQ in Lactated Ringer's 1,000 ML IV SCH ×3 (03:08→18:57)
[2022-04-12] MEDS: CEFAZOLIN 2 GM in Sodium Chloride 0.9% 100 ML IVPB SCH ×2 (05:07→13:55)
[2022-04-12] MEDS: Ketorolac Tromethamine 30 MG/ML VIAL IVP PRN ×2 (05:08→13:55)
[2022-04-12 07:59] LABS: #Lymphocytes 0.4 thou/uL (1.20-3.40); #Monocytes 0.4 thou/uL (0.11-0.59); #Neutrophils 5.3 thou/uL (1.40-6.50); %Basophils 0.3 % (0.0-1.0); %Eosinophils 0.3 % (0.0-10.0); %Lymphocytes 6.5 % (21.0-51.0); %Monocytes 6.8 % (0.0-10.0); %Neutrophils 86.1 % (42.0-75.0); Hemoglobin 8.7 g/dL (12.0-16.0); Mean Corpuscular Hemoglobin 31.3 pg (27.0-31.0); Mean Platelet Volume 7.1 fL (7.4-10.4); Platelet Count 224 thou/uL (130-400); RBC Distribution Width 14.9 % (11.5-14.5); Red Blood Cell (RBC) Count 2.77 mill/uL (4.20-5.40); White Blood Cell (WBC) Count 6.1 thou/uL (4.8-10.8)
[2022-04-12 08:17] LABS: Lactic Acid 0.8 mmol/L (0.5-2.2)
[2022-04-12 08:21] LABS: Anion Gap 18 mmol/L (10-20); BUN (Urea Nitrogen) 9 mg/dL (7.0-18.7); Calc. Creatinine Clearance 144 mL/min (70-130); Calcium 8.5 mg/dL (7.8-10.44); Carbon Dioxide 27 mmol/L (22-29); Chloride 98 mmol/L (98-107); Glucose 68 mg/dL (70-105); Sodium 139 mmol/L (136-145)
[2022-04-12] MEDS: lamoTRIgine 100 MG TAB PO SCH ×2 (08:39→21:37)
[2022-04-12] MEDS: levETIRAcetam 500 MG TAB PO SCH ×2 (08:39→21:38)
[2022-04-12] MEDS: Folic Acid 1 MG TAB PO SCH (08:40)
[2022-04-12] MEDS: lamoTRIgine 25 MG TAB PO SCH ×2 (08:40→21:38)
[2022-04-12] MEDS: Pantoprazole 40 MG VIAL IVP SCH (08:40)
[2022-04-12 09:37] LABS: Actual Bicarbonate (HCO3a) 20.2 mEq/L (22-28); Analyzer IN Cardio OR; Base Excess (BEa) -3.1 mEq/L (-2.0 to +3.0); CO2 Tension 28.9 mmHg (35.0-45.0); Calcium, Ionized (arterial) 1.04 mmol/L (1.12-1.30); Carboxyhemoglobin (COHb) 1.1 gm% (0.0-3.0); Hemoglobin (Hb) 6.9 g/dL (12.0-16.0); O2 Tension (PaO2), arterial 379.5 mmHg (80.0-100.0); Potassium - ABG Lab 3.12 mmol/L (3.70-5.30); pH, Arterial 7.46 (7.35-7.45)
[2022-04-12 09:37] LABS: Actual Bicarbonate (HCO3a) 19.1 mEq/L (22-28); Analyzer IN Cardio OR; Base Excess (BEa) -4.9 mEq/L (-2.0 to +3.0); CO2 Tension 31.6 mmHg (35.0-45.0); Calcium, Ionized (arterial) 1.17 mmol/L (1.12-1.30); Carboxyhemoglobin (COHb) 0.1 gm% (0.0-3.0); Hemoglobin (Hb) 10.7 g/dL (12.0-16.0); O2 Tension (PaO2), arterial 411.2 mmHg (80.0-100.0); Potassium - ABG Lab 3.17 mmol/L (3.70-5.30)
[2022-04-12 09:39] LABS: Puncture Site Arterial Line
[2022-04-12 09:39] LABS: Puncture Site Arterial Line
[2022-04-12] MEDS: Acetaminophen 500 MG TAB PO PRN (09:49)
[2022-04-12] MEDS: Morphine 4 MG/ML VIAL SLOW IVP PRN ×2 (09:52→17:24)
[2022-04-12 13:16] VITALS: BMI 27.1
[2022-04-12] MEDS: Loratadine 10 MG TAB PO SCH (21:37)
[2022-04-12] MEDS: Enoxaparin Sodium 40 MG/0.4 ML SYRINGE SC SCH (21:38)
[2022-04-12] MEDS: Melatonin 3 MG TAB PO PRN (22:33)
[2022-04-13] MEDS: Ketorolac Tromethamine 30 MG/ML VIAL IVP PRN ×2 (01:00→08:51)
[2022-04-13] MEDS: Potassium Chloride 20 MEQ in Lactated Ringer's 1,000 ML IV SCH (06:49)
[2022-04-13] MEDS ORDERED: lamoTRIgine 100 MG TAB PO SCH (08:45)
[2022-04-13] MEDS: lamoTRIgine 25 MG TAB PO SCH (08:48)
[2022-04-13] MEDS: lamoTRIgine 100 MG TAB PO SCH (08:48)
[2022-04-13] MEDS: Pantoprazole 40 MG VIAL IVP SCH (08:48)
[2022-04-13] MEDS: levETIRAcetam 500 MG TAB PO SCH (08:49)
[2022-04-13] MEDS: Folic Acid 1 MG TAB PO SCH (08:51)
[2022-04-13] MEDS: Morphine 4 MG/ML VIAL SLOW IVP PRN (11:00)
[2022-04-13] MEDS ORDERED: traMADol HCl 50 MG TAB PO PRN (13:16)
[2022-04-13] MEDS: Acetaminophen 500 MG TAB PO PRN (16:25)
[2022-04-13 17:02] VITALS: BP 124/80; TEMP 98.7
[2022-04-14] MEDS ORDERED: Ferrous Sulfate 325 MG TAB PO SCH (08:00)
[2022-04-14] MEDS ORDERED: Cyanocobalamin (Vitamin B-12) 1,000 MCG TAB PO SCH (09:00)
[2022-04-14] MEDS ORDERED: Multivitamin W/ Minerals 1 TAB PO SCH (09:00)
== END 2022-04-13 17:58 | disposition home or self-care (01) | DRG 326 ==
LOC: ERS 10:35 → ERHOLD 13:07 → 2NO 17:49 → T4-A 04-05 14:05 → CCU 04-06 16:02 → SJJU 04-08 15:23
PROVIDERS: ADMIT Internal Medicine; ATTEND Internal Medicine
PROC: 30233N1 Transfusion of Nonautologous Red Blood Cells into Peripheral Vein, Percutaneous Approach (ICD-10-PCS; 2022-04-03)
PROC: 05HY33Z Insertion of Infusion Device into Upper Vein, Percutaneous Approach (ICD-10-PCS; 2022-04-03)
PROC: 0DB68ZX Excision of Stomach, Via Natural or Artificial Opening Endoscopic, Diagnostic (ICD-10-PCS; principal; 2022-04-04)
PROC: 0DC68ZZ Extirpation of Matter from Stomach, Via Natural or Artificial Opening Endoscopic (ICD-10-PCS; 2022-04-04)
PROC: 0W3P8ZZ Control Bleeding in Gastrointestinal Tract, Via Natural or Artificial Opening Endoscopic (ICD-10-PCS; 2022-04-06)
PROC: 0DB60ZZ Excision of Stomach, Open Approach (ICD-10-PCS; 2022-04-06)
PROC: 0D160Z9 Bypass Stomach to Duodenum, Open Approach (ICD-10-PCS; 2022-04-06)
PROC: 0DB90ZZ Excision of Duodenum, Open Approach (ICD-10-PCS; 2022-04-06)
PROC: 30233K1 Transfusion of Nonautologous Frozen Plasma into Peripheral Vein, Percutaneous Approach (ICD-10-PCS; 2022-04-06)
DX: K26.6 Chronic or unspecified duodenal ulcer with both hemorrhage and perforation (principal); G93.41 Metabolic encephalopathy; R57.8 Other shock; J95.821 Acute postprocedural respiratory failure; D62 Acute posthemorrhagic anemia; J98.11 Atelectasis; F41.9 Anxiety disorder, unspecified; F32.A Depression, unspecified; E87.6 Hypokalemia; G40.909 Epilepsy, unspecified, not intractable, without status epilepticus; M54.9 Dorsalgia, unspecified; K31.89 Other diseases of stomach and duodenum; R51.9 Headache, unspecified; K59.09 Other constipation; R68.81 Early satiety; K25.9 Gastric ulcer, unspecified as acute or chronic, without hemorrhage or perforation; R63.4 Abnormal weight loss; Z20.822 Contact with and (suspected) exposure to COVID-19; F10.11 Alcohol abuse, in remission; Z87.891 Personal history of nicotine dependence; Z79.82 Long term (current) use of aspirin; Z79.899 Other long term (current) drug therapy; Z91.040 Latex allergy status; Z91.010 Allergy to peanuts; Z82.49 Family history of ischemic heart disease and other diseases of the circulatory system; Z86.69 Personal history of other diseases of the nervous system and sense organs; Z68.27 Body mass index [BMI] 27.0-27.9, adult
CPT/HCPCS: 36415; 36416; 36430; 70450; 71045; 74018; 74177; 80048; 80053; 82607; 82728; 82746; 82805; 83540; 83550; 83605; 83735; 84443; 84484; 84703; 85014; 85018; 85025; 85046; 85060; 86850; 86900; 86901; 88305; 88307; 88312; 93005; 93306; 94002; 94003; 96374; 96376; A4649; C1751; C1776; C9113; J0171; J0690; J1200; J1650; J1885; J2060; J2250; J2270; J2405; J2704; J2916; J3010; J3480; J3490; J7050; J7120; P9016; P9047; P9048; Q9967; U0002; U0003; U0005

== ENCOUNTER 2022-04-19 14:18 | Inpatient (IN) | payer MEDICARE, BC ==
[2022-04-19 16:34] VITALS: BMI 27.8
[2022-04-19] MEDS ORDERED: Ondansetron ODT 4 MG TAB PO PRN (18:38)
[2022-04-19] MEDS ORDERED: Ondansetron PF 4 MG/2 ML Vial IVP PRN (18:38)
[2022-04-19] MEDS ORDERED: Acetaminophen 500 MG TAB PO SCH (18:45)
[2022-04-19] MEDS ORDERED: Melatonin 3 MG TAB PO PRN (19:39)
[2022-04-19] MEDS: Piperacillin/Tazobactam 3.375 GM in Sodium Chloride 0.9% 100 ML IVPB SCH (20:44)
[2022-04-19] MEDS: Enoxaparin Sodium 40 MG/0.4 ML SYRINGE SC SCH (20:44)
[2022-04-19] MEDS: Potassium Chloride 20 MEQ in Lactated Ringer's 1,000 ML IV SCH (20:44)
[2022-04-19] MEDS: Loratadine 10 MG TAB PO SCH (20:45)
[2022-04-19] MEDS: lamoTRIgine 100 MG TAB PO SCH (20:45)
[2022-04-19] MEDS: levETIRAcetam 500 MG TAB PO SCH (20:45)
[2022-04-19] MEDS: Polyethylene Glycol 3350 17 GM Packet PO SCH (20:46)
[2022-04-19] MEDS: traMADol HCl 50 MG TAB PO PRN (22:46)
[2022-04-20] MEDS: traMADol HCl 50 MG TAB PO PRN ×3 (04:23→20:44)
[2022-04-20] MEDS: Piperacillin/Tazobactam 3.375 GM in Sodium Chloride 0.9% 100 ML IVPB SCH ×3 (04:24→20:44)
[2022-04-20] MEDS: Potassium Chloride 20 MEQ in Lactated Ringer's 1,000 ML IV SCH ×4 (04:47→17:33)
[2022-04-20 06:52] LABS: INR-International Normal Ratio 1.2; PTT 35.5 sec (22.9-36.1); Prothrombin Time 15.1 sec (12.0-14.7)
[2022-04-20 06:57] LABS: ALT (SGPT) 25 U/L (8-55); AST (SGOT) 48 U/L (5-34); Albumin 2.4 g/dL (3.5-5.0); Alkaline Phosphatase 221 U/L (40-110); Anion Gap 17 mmol/L (10-20); BUN (Urea Nitrogen) 9 mg/dL (7.0-18.7); Bilirubin, Total 1.2 mg/dL (0.2-1.2); Calc. Creatinine Clearance 153 mL/min (70-130); Calcium 7.9 mg/dL (7.8-10.44); Carbon Dioxide 28 mmol/L (22-29); Chloride 96 mmol/L (98-107); Estimated GFR 119; Globulin 3.1 g/dL (2.4-3.5); Glucose 82 mg/dL (70-105); Potassium 3.5 mmol/L (3.5-5.1); Protein, Total 5.5 g/dL (6.0-8.3); Sodium 137 mmol/L (136-145)
[2022-04-20 08:09] LABS: Band 55 % (5-11); Hemoglobin 8.4 g/dL (12.0-16.0); Hypochromia SLIGHT = 6-15 cells (100X) (0-5/hpf); Lymphocytes 3 % (21-51); MDiff Complete? YES; Mean Corpuscular HGB CONC 30.8 g/dL (32.0-36.0); Mean Corpuscular Hemoglobin 30.3 pg (27.0-31.0); Mean Corpuscular Volume 98.3 fL (78.0-98.0); Mean Platelet Volume 7.5 fL (7.4-10.4); Metamyelocyte 2 % (0-0); Monocytes 6 % (0-10); Neutrophil 34 % (42-75); Nucleated RBC 2 % (0); Platelet Count 506 thou/uL (130-400); Platelet Morphology Comment Appears Increased; Polychromasia MODERATE = 3-4 cells (100X) (0-2/hpf); RBC Distribution Width 15.2 % (11.5-14.5); Red Blood Cell (RBC) Count 2.76 mill/uL (4.20-5.40); Stomatocytes SLIGHT = 2-5 cells (100X) (0-1/hpf); White Blood Cell (WBC) Count 19.4 thou/uL (4.8-10.8)
[2022-04-20] MEDS: Polyethylene Glycol 3350 17 GM Packet PO SCH ×2 (08:25→20:43)
[2022-04-20] MEDS: lamoTRIgine 100 MG TAB PO SCH ×2 (08:25→20:43)
[2022-04-20] MEDS: Cholecalciferol (Vitamin D3) 400 UNITS TAB PO SCH (08:26)
[2022-04-20] MEDS: Cyanocobalamin (Vitamin B-12) 1,000 MCG TAB PO SCH (08:26)
[2022-04-20] MEDS: levETIRAcetam 500 MG TAB PO SCH ×2 (08:26→20:43)
[2022-04-20] MEDS: Ferrous Sulfate 325 MG TAB PO SCH (08:26)
[2022-04-20] MEDS: Folic Acid 1 MG TAB PO SCH (08:26)
[2022-04-20] MEDS ORDERED: Sodium Bicarbonate 2.5 MEQ/5 ML VIAL ONE (10:13)
[2022-04-20 14:02] LABS: Body Fluid Source Peritoneal Fluid; Tube # EDTA
[2022-04-20 14:03] LABS: BF Color Brown; Clarity Cloudy/Turbid (Clear)
[2022-04-20 14:13] LABS: BF Color Brown; Body Fluid Source Peritoneal Fluid; Clarity Hazy (Clear); Tube # EDTA
[2022-04-20] MEDS: Enoxaparin Sodium 40 MG/0.4 ML SYRINGE SC SCH (20:43)
[2022-04-20] MEDS: Loratadine 10 MG TAB PO SCH (20:44)
[2022-04-21] MEDS: Piperacillin/Tazobactam 3.375 GM in Sodium Chloride 0.9% 100 ML IVPB SCH ×3 (05:20→20:24)
[2022-04-21] MEDS: Ferrous Sulfate 325 MG TAB PO SCH (09:30)
[2022-04-21] MEDS: Folic Acid 1 MG TAB PO SCH (09:31)
[2022-04-21] MEDS: Cholecalciferol (Vitamin D3) 400 UNITS TAB PO SCH (09:31)
[2022-04-21] MEDS: Cyanocobalamin (Vitamin B-12) 1,000 MCG TAB PO SCH (09:31)
[2022-04-21] MEDS: levETIRAcetam 500 MG TAB PO SCH ×2 (09:31→20:25)
[2022-04-21] MEDS: Polyethylene Glycol 3350 17 GM Packet PO SCH ×2 (09:32→20:26)
[2022-04-21] MEDS: Potassium Chloride 20 MEQ in Lactated Ringer's 1,000 ML IV SCH (09:32)
[2022-04-21] MEDS: lamoTRIgine 100 MG TAB PO SCH ×2 (09:41→20:25)
[2022-04-21] MEDS: traMADol HCl 50 MG TAB PO PRN ×2 (10:04→17:10)
[2022-04-21] MEDS: Acetaminophen 500 MG TAB PO PRN (17:13)
[2022-04-21] MEDS: Enoxaparin Sodium 40 MG/0.4 ML SYRINGE SC SCH (20:24)
[2022-04-21] MEDS: Loratadine 10 MG TAB PO SCH (20:25)
[2022-04-22] MEDS: Piperacillin/Tazobactam 3.375 GM in Sodium Chloride 0.9% 100 ML IVPB SCH ×3 (03:49→19:16)
[2022-04-22 07:19] LABS: ALT (SGPT) 17 U/L (8-55); AST (SGOT) 35 U/L (5-34); Albumin 2.3 g/dL (3.5-5.0); Alkaline Phosphatase 185 U/L (40-110); Anion Gap 12 mmol/L (10-20); BUN (Urea Nitrogen) 8 mg/dL (7.0-18.7); Bilirubin, Total 0.7 mg/dL (0.2-1.2); Calc. Creatinine Clearance 161 mL/min (70-130); Carbon Dioxide 33 mmol/L (22-29); Chloride 95 mmol/L (98-107); Estimated GFR 120; Globulin 3.4 g/dL (2.4-3.5); Glucose 94 mg/dL (70-105); Potassium 3.3 mmol/L (3.5-5.1); Protein, Total 5.7 g/dL (6.0-8.3); Sodium 137 mmol/L (136-145)
[2022-04-22 07:22] LABS: Band 37 % (5-11); Hemoglobin 7.8 g/dL (12.0-16.0); Lymphocytes 8 % (21-51); MDiff Complete? YES; Macrocytosis SLIGHT = 6-15 cells (100X) (0-5/hpf); Mean Corpuscular HGB CONC 30.9 g/dL (32.0-36.0); Mean Corpuscular Hemoglobin 30.9 pg (27.0-31.0); Mean Platelet Volume 7.3 fL (7.4-10.4); Metamyelocyte 1 % (0-0); Monocytes 3 % (0-10); Myelocyte 1 % (0-0); Neutrophil 47 % (42-75); Platelet Count 475 thou/uL (130-400); Platelet Morphology Comment Appears Increased; Polychromasia SLIGHT = 2-3 cells (100X) (0-2/hpf); RBC Distribution Width 15.8 % (11.5-14.5); Reactive Lymphocytes 3 % (0-10); Red Blood Cell (RBC) Count 2.51 mill/uL (4.20-5.40); White Blood Cell (WBC) Count 12.9 thou/uL (4.8-10.8)
[2022-04-22] MEDS ORDERED: Potassium Chloride 40 MEQ in Premix Bag 1 BAG IVPB SCH (08:30)
[2022-04-22] MEDS: levETIRAcetam 500 MG TAB PO SCH ×2 (09:27→19:17)
[2022-04-22] MEDS: Cholecalciferol (Vitamin D3) 400 UNITS TAB PO SCH (09:28)
[2022-04-22] MEDS: Ferrous Sulfate 325 MG TAB PO SCH (09:28)
[2022-04-22] MEDS: traMADol HCl 50 MG TAB PO PRN (09:28)
[2022-04-22] MEDS: Folic Acid 1 MG TAB PO SCH (09:28)
[2022-04-22] MEDS: lamoTRIgine 100 MG TAB PO SCH ×2 (09:28→19:17)
[2022-04-22] MEDS: Cyanocobalamin (Vitamin B-12) 1,000 MCG TAB PO SCH (09:28)
[2022-04-22] MEDS: Acetaminophen 500 MG TAB PO PRN (09:35)
[2022-04-22] MEDS: Polyethylene Glycol 3350 17 GM Packet PO SCH ×2 (09:39→19:20)
[2022-04-22] MEDS: Acetaminophen 500 MG TAB PO SCH ×2 (12:11→17:40)
[2022-04-22] MEDS: traMADol HCl 50 MG TAB PO SCH ×2 (12:12→17:40)
[2022-04-22] MEDS: Loratadine 10 MG TAB PO SCH (19:20)
[2022-04-22] MEDS: Enoxaparin Sodium 40 MG/0.4 ML SYRINGE SC SCH (19:20)
[2022-04-23] MEDS: Acetaminophen 500 MG TAB PO SCH ×4 (00:09→17:56)
[2022-04-23] MEDS: traMADol HCl 50 MG TAB PO SCH ×4 (00:10→17:56)
[2022-04-23 03:50] LABS: Anion Gap 12 mmol/L (10-20); BUN (Urea Nitrogen) 9 mg/dL (7.0-18.7); Calc. Creatinine Clearance 172 mL/min (70-130); Carbon Dioxide 34 mmol/L (22-29); Chloride 96 mmol/L (98-107); Estimated GFR 122; Glucose 92 mg/dL (70-105); Magnesium 2.3 mg/dL (1.6-2.6); Sodium 138 mmol/L (136-145)
[2022-04-23 03:55] LABS: Band 24 % (5-11); Hemoglobin 8.4 g/dL (12.0-16.0); Lymphocytes 8 % (21-51); MDiff Complete? YES; Mean Corpuscular HGB CONC 32.8 g/dL (32.0-36.0); Mean Corpuscular Hemoglobin 32.6 pg (27.0-31.0); Mean Corpuscular Volume 99.4 fL (78.0-98.0); Mean Platelet Volume 7.2 fL (7.4-10.4); Monocytes 8 % (0-10); Myelocyte 2 % (0-0); Neutrophil 58 % (42-75); Platelet Count 457 thou/uL (130-400); RBC Distribution Width 15.6 % (11.5-14.5); Red Blood Cell (RBC) Count 2.58 mill/uL (4.20-5.40); White Blood Cell (WBC) Count 11.6 thou/uL (4.8-10.8)
[2022-04-23] MEDS: Piperacillin/Tazobactam 3.375 GM in Sodium Chloride 0.9% 100 ML IVPB SCH ×2 (04:13→12:54)
[2022-04-23] MEDS: traMADol HCl 50 MG TAB PO PRN (09:50)
[2022-04-23] MEDS: lamoTRIgine 100 MG TAB PO SCH ×2 (09:51→21:14)
[2022-04-23] MEDS: Folic Acid 1 MG TAB PO SCH (09:52)
[2022-04-23] MEDS: levETIRAcetam 500 MG TAB PO SCH ×2 (09:52→21:09)
[2022-04-23] MEDS: Polyethylene Glycol 3350 17 GM Packet PO SCH ×2 (09:53→21:07)
[2022-04-23] MEDS: Cholecalciferol (Vitamin D3) 400 UNITS TAB PO SCH (09:53)
[2022-04-23] MEDS: Cyanocobalamin (Vitamin B-12) 1,000 MCG TAB PO SCH (09:53)
[2022-04-23] MEDS: Ferrous Sulfate 325 MG TAB PO SCH (09:53)
[2022-04-23] MEDS: Enoxaparin Sodium 40 MG/0.4 ML SYRINGE SC SCH (21:09)
[2022-04-23] MEDS: Loratadine 10 MG TAB PO SCH (21:09)
[2022-04-24] MEDS: Acetaminophen 500 MG TAB PO SCH ×5 (00:20→23:36)
[2022-04-24] MEDS: traMADol HCl 50 MG TAB PO SCH ×5 (00:21→23:36)
[2022-04-24 04:43] LABS: Hemoglobin 7.6 g/dL (12.0-16.0); Mean Corpuscular HGB CONC 30.9 g/dL (32.0-36.0); Mean Corpuscular Hemoglobin 30.9 pg (27.0-31.0); Mean Platelet Volume 6.9 fL (7.4-10.4); Platelet Count 424 thou/uL (130-400); RBC Distribution Width 15.6 % (11.5-14.5); Red Blood Cell (RBC) Count 2.46 mill/uL (4.20-5.40); White Blood Cell (WBC) Count 11.6 thou/uL (4.8-10.8)
[2022-04-24 04:59] LABS: Anion Gap 10 mmol/L (10-20); BUN (Urea Nitrogen) 9 mg/dL (7.0-18.7); Calc. Creatinine Clearance 175 mL/min (70-130); Calcium 8.3 mg/dL (7.8-10.44); Carbon Dioxide 33 mmol/L (22-29); Chloride 97 mmol/L (98-107); Estimated GFR 122; Glucose 82 mg/dL (70-105); Phosphorus 3.9 mg/dL (2.3-4.7); Sodium 136 mmol/L (136-145)
[2022-04-24 06:06] LABS: Band 15 % (5-11); Lymphocytes 7 % (21-51); MDiff Complete? YES; Monocytes 8 % (0-10); Neutrophil 70 % (42-75)
[2022-04-24] MEDS: levETIRAcetam 500 MG TAB PO SCH ×2 (09:16→21:02)
[2022-04-24] MEDS: Cyanocobalamin (Vitamin B-12) 1,000 MCG TAB PO SCH (09:16)
[2022-04-24] MEDS: Folic Acid 1 MG TAB PO SCH (09:17)
[2022-04-24] MEDS: Ferrous Sulfate 325 MG TAB PO SCH (09:17)
[2022-04-24] MEDS: Polyethylene Glycol 3350 17 GM Packet PO SCH ×2 (09:17→21:36)
[2022-04-24] MEDS: Cholecalciferol (Vitamin D3) 400 UNITS TAB PO SCH (09:17)
[2022-04-24] MEDS: lamoTRIgine 100 MG TAB PO SCH ×2 (09:54→21:02)
[2022-04-24] MEDS: Scopolamine 1.5 mg/72 hour Patch TD SCH (11:30)
[2022-04-24] MEDS: traMADol HCl 50 MG TAB PO PRN (15:56)
[2022-04-24] MEDS: Enoxaparin Sodium 40 MG/0.4 ML SYRINGE SC SCH (21:01)
[2022-04-24] MEDS: Loratadine 10 MG TAB PO SCH (21:01)
[2022-04-25 05:52] LABS: Anion Gap 15 mmol/L (10-20); BUN (Urea Nitrogen) 8 mg/dL (7.0-18.7); Calc. Creatinine Clearance 158 mL/min (70-130); Calcium 8.3 mg/dL (7.8-10.44); Carbon Dioxide 28 mmol/L (22-29); Chloride 96 mmol/L (98-107); Estimated GFR 119; Glucose 79 mg/dL (70-105); Magnesium 1.8 mg/dL (1.6-2.6); Phosphorus 3.7 mg/dL (2.3-4.7); Potassium 4.5 mmol/L (3.5-5.1); Sodium 134 mmol/L (136-145)
[2022-04-25] MEDS: traMADol HCl 50 MG TAB PO SCH ×4 (05:52→23:40)
[2022-04-25] MEDS: Acetaminophen 500 MG TAB PO SCH ×4 (05:52→23:41)
[2022-04-25 06:39] LABS: Anisocytosis SLIGHT = 6-15 cells (100X) (0-5/hpf); Band 28 % (5-11); Hemoglobin 7.8 g/dL (12.0-16.0); Lymphocytes 3 % (21-51); MDiff Complete? YES; Mean Corpuscular HGB CONC 35.5 g/dL (32.0-36.0); Mean Corpuscular Hemoglobin 32.2 pg (27.0-31.0); Mean Platelet Volume 9.9 fL (7.4-10.4); Monocytes 7 % (0-10); Neutrophil 62 % (42-75); Platelet Count 562 thou/uL (130-400); RBC Distribution Width 27.3 % (11.5-14.5); Red Blood Cell (RBC) Count 2.41 mill/uL (4.20-5.40); White Blood Cell (WBC) Count 12.1 thou/uL (4.8-10.8)
[2022-04-25] MEDS ORDERED: ISOVUE-370 76%-LOCM 1 ML ONE (08:00)
[2022-04-25] MEDS ORDERED: GASTROGRAFIN 30 ML BOT ONE (08:00)
[2022-04-25] MEDS: levETIRAcetam 500 MG TAB PO SCH ×2 (10:34→21:35)
[2022-04-25] MEDS: lamoTRIgine 100 MG TAB PO SCH ×2 (10:35→21:35)
[2022-04-25] MEDS: Polyethylene Glycol 3350 17 GM Packet PO SCH ×2 (10:36→21:37)
[2022-04-25] MEDS: Folic Acid 1 MG TAB PO SCH (12:15)
[2022-04-25] MEDS: Ferrous Sulfate 325 MG TAB PO SCH (12:16)
[2022-04-25] MEDS: Cyanocobalamin (Vitamin B-12) 1,000 MCG TAB PO SCH (12:16)
[2022-04-25] MEDS: Cholecalciferol (Vitamin D3) 400 UNITS TAB PO SCH (12:16)
[2022-04-25] MEDS: Enoxaparin Sodium 40 MG/0.4 ML SYRINGE SC SCH (21:35)
[2022-04-25] MEDS: Loratadine 10 MG TAB PO SCH (21:36)
[2022-04-26] MEDS: traMADol HCl 50 MG TAB PO SCH ×4 (05:47→22:59)
[2022-04-26] MEDS: Acetaminophen 500 MG TAB PO SCH ×4 (05:47→22:59)
[2022-04-26] MEDS: Polyethylene Glycol 3350 17 GM Packet PO SCH ×2 (08:43→20:39)
[2022-04-26] MEDS: lamoTRIgine 100 MG TAB PO SCH ×2 (08:44→20:42)
[2022-04-26] MEDS: levETIRAcetam 500 MG TAB PO SCH ×2 (08:44→20:43)
[2022-04-26] MEDS: Ferrous Sulfate 325 MG TAB PO SCH (08:44)
[2022-04-26] MEDS: Cyanocobalamin (Vitamin B-12) 1,000 MCG TAB PO SCH (08:45)
[2022-04-26] MEDS: Folic Acid 1 MG TAB PO SCH (08:45)
[2022-04-26] MEDS: Cholecalciferol (Vitamin D3) 400 UNITS TAB PO SCH (08:45)
[2022-04-26] MEDS: Enoxaparin Sodium 40 MG/0.4 ML SYRINGE SC SCH (20:41)
[2022-04-26] MEDS: Loratadine 10 MG TAB PO SCH (20:44)
[2022-04-27] MEDS: Acetaminophen 500 MG TAB PO SCH ×2 (06:02→11:07)
[2022-04-27] MEDS: traMADol HCl 50 MG TAB PO SCH ×2 (06:04→11:08)
[2022-04-27] MEDS: Polyethylene Glycol 3350 17 GM Packet PO SCH (08:39)
[2022-04-27] MEDS: Folic Acid 1 MG TAB PO SCH (08:41)
[2022-04-27] MEDS: Ferrous Sulfate 325 MG TAB PO SCH (08:41)
[2022-04-27] MEDS: levETIRAcetam 500 MG TAB PO SCH (08:41)
[2022-04-27] MEDS: lamoTRIgine 100 MG TAB PO SCH (08:42)
[2022-04-27] MEDS: Cyanocobalamin (Vitamin B-12) 1,000 MCG TAB PO SCH (08:43)
[2022-04-27] MEDS: Cholecalciferol (Vitamin D3) 400 UNITS TAB PO SCH (08:43)
[2022-04-27 08:53] VITALS: BP 107/72; TEMP 98.4
[2022-04-27] MEDS: Scopolamine 1.5 mg/72 hour Patch TD SCH (11:08)
== END 2022-04-27 18:07 | disposition home or self-care (01) | DRG 380 ==
LOC: T4-B 15:30
PROVIDERS: ADMIT Specialist; ATTEND Specialist
PROC: 30233N1 Transfusion of Nonautologous Red Blood Cells into Peripheral Vein, Percutaneous Approach (ICD-10-PCS; principal; 2022-04-20)
PROC: 0W9G3ZZ Drainage of Peritoneal Cavity, Percutaneous Approach (ICD-10-PCS; 2022-04-20)
PROC: 02HV33Z Insertion of Infusion Device into Superior Vena Cava, Percutaneous Approach (ICD-10-PCS; 2022-04-20)
PROC: B548ZZA Ultrasonography of Superior Vena Cava, Guidance (ICD-10-PCS; 2022-04-20)
DX: K26.5 Chronic or unspecified duodenal ulcer with perforation (principal); K65.1 Peritoneal abscess; E46 Unspecified protein-calorie malnutrition; T81.40XA Infection following a procedure, unspecified, initial encounter; G40.909 Epilepsy, unspecified, not intractable, without status epilepticus; Y83.8 Other surgical procedures as the cause of abnormal reaction of the patient, or of later complication, without mention of misadventure at the time of the procedure; D64.9 Anemia, unspecified; Z91.040 Latex allergy status; Z91.010 Allergy to peanuts; Z68.27 Body mass index [BMI] 27.0-27.9, adult; Z79.899 Other long term (current) drug therapy; Z20.822 Contact with and (suspected) exposure to COVID-19
CPT/HCPCS: 36415; 36430; 36569; 49020; 51701; 71045; 74177; 77002; 80048; 80053; 81003; 81015; 83605; 83735; 84100; 85025; 85060; 85610; 85730; 86850; 86900; 86901; 87040; 87070; 87077; 87086; 87149; 87186; 87205; 89051; 93005; 96365; 96366; 96375; C1729; C1751; J1650; J1956; J2405; J2543; J3010; J3480; J3490; J7120; P9016; Q0162; Q9963; Q9966; Q9967

== ENCOUNTER 2022-05-12 12:39 | Day surgery (SDC) | payer MEDICARE, BC ==
[2022-05-12] MEDS ORDERED: Meropenem 1 GM in Sodium Chloride 0.9% 100 ML IVPB SCH (13:00)
[2022-05-12] MEDS ORDERED: Fluconazole In NaCl,Iso-Osm 400 MG in Premix Bag 1 BAG IVPB SCH (13:00)
[2022-05-12 13:42] LABS: #Lymphocytes 0.8 thou/uL (1.20-3.40); #Monocytes 0.8 thou/uL (0.11-0.59); #Neutrophils 11.7 thou/uL (1.40-6.50); %Basophils 0.2 % (0.0-1.0); %Eosinophils 0.1 % (0.0-10.0); %Monocytes 5.7 % (0.0-10.0); Hemoglobin 8.2 g/dL (12.0-16.0); Mean Corpuscular HGB CONC 31.1 g/dL (32.0-36.0); Mean Corpuscular Hemoglobin 30.5 pg (27.0-31.0); Mean Corpuscular Volume 97.8 fL (78.0-98.0); Mean Platelet Volume 7.5 fL (7.4-10.4); Platelet Count 515 thou/uL (130-400); RBC Distribution Width 15.3 % (11.5-14.5); Red Blood Cell (RBC) Count 2.67 mill/uL (4.20-5.40); White Blood Cell (WBC) Count 13.3 thou/uL (4.8-10.8)
[2022-05-12 14:03] LABS: Anion Gap 19 mmol/L (10-20); BUN (Urea Nitrogen) 6 mg/dL (7.0-18.7); Calc. Creatinine Clearance 0 mL/min (70-130); Calcium 8.8 mg/dL (7.8-10.44); Carbon Dioxide 22 mmol/L (22-29); Chloride 95 mmol/L (98-107); Estimated GFR 120; Glucose 80 mg/dL (70-105); Potassium 3.3 mmol/L (3.5-5.1); Sodium 133 mmol/L (136-145)
[2022-05-12 14:37] VITALS: BP 102/59; TEMP 98.5
== END 2022-05-12 16:05 | disposition home or self-care (01) ==
LOC: ONC/OP 12:39
PROVIDERS: ATTEND Internal Medicine Infectious Disease
PROC: 02HV33Z Insertion of Infusion Device into Superior Vena Cava, Percutaneous Approach (ICD-10-PCS; principal; 2022-05-12)
PROC: 0W9G30Z Drainage of Peritoneal Cavity with Drainage Device, Percutaneous Approach (ICD-10-PCS; principal; 2022-05-12)
DX: Z79.2 Long term (current) use of antibiotics (principal); R18.8 Other ascites; B99.9 Unspecified infectious disease; Z87.11 Personal history of peptic ulcer disease; Z79.82 Long term (current) use of aspirin; Z79.899 Other long term (current) drug therapy; Z91.040 Latex allergy status; Z91.010 Allergy to peanuts; Z91.018 Allergy to other foods; Z90.3 Acquired absence of stomach [part of]
CPT/HCPCS: 36569; 49423; 80048; 85025; 85652; 86140; 96365; 96367; C1751; J1450; J1642; J1644; J2185; J3490

== ENCOUNTER → 2022-05-12 | Day surgery (SDC) | payer MEDICARE, BC ==
[2022-05-10 15:26] VITALS: BMI 22.8
== END ==
LOC: SPEC 09:31
PROVIDERS: ATTEND Specialist
PROC: 02HV33Z Insertion of Infusion Device into Superior Vena Cava, Percutaneous Approach (ICD-10-PCS; principal; 2022-05-12)
PROC: 0W9G30Z Drainage of Peritoneal Cavity with Drainage Device, Percutaneous Approach (ICD-10-PCS; 2022-05-12)
DX: R18.8 Other ascites (principal); B99.9 Unspecified infectious disease; Z87.11 Personal history of peptic ulcer disease; Z79.2 Long term (current) use of antibiotics; Z79.82 Long term (current) use of aspirin; Z79.899 Other long term (current) drug therapy; Z91.040 Latex allergy status; Z91.010 Allergy to peanuts; Z91.018 Allergy to other foods; Z90.3 Acquired absence of stomach [part of]
CPT/HCPCS: 36569; 49423; C1751

== ENCOUNTER 2022-05-23 12:19 | Inpatient (IN) | payer MEDICARE, BC ==
[~2022-05-23 12:19] MED LIST: Iopamidol-370 76% 500 ML 1 ML ONE
[2022-05-23 12:57] LABS: #Monocytes 0.5 thou/uL (0.11-0.59); %Basophils 0.1 % (0.0-1.0); %Eosinophils 0.3 % (0.0-10.0); %Lymphocytes 10.3 % (21.0-51.0); %Monocytes 5.4 % (0.0-10.0); %Neutrophils 83.9 % (42.0-75.0); Hemoglobin 7.9 g/dL (12.0-16.0); Mean Corpuscular HGB CONC 31.2 g/dL (32.0-36.0); Mean Corpuscular Hemoglobin 29.9 pg (27.0-31.0); Mean Platelet Volume 7.2 fL (7.4-10.4); Platelet Count 514 thou/uL (130-400); RBC Distribution Width 16.7 % (11.5-14.5); Red Blood Cell (RBC) Count 2.63 mill/uL (4.20-5.40); White Blood Cell (WBC) Count 9.6 thou/uL (4.8-10.8)
[2022-05-23 13:24] LABS: ALT (SGPT) 11 U/L (8-55); AST (SGOT) 17 U/L (5-34); Albumin 2.4 g/dL (3.5-5.0); Alkaline Phosphatase 143 U/L (40-110); Anion Gap 15 mmol/L (10-20); BUN (Urea Nitrogen) 4 mg/dL (7.0-18.7); Bilirubin, Total 0.3 mg/dL (0.2-1.2); Calc. Creatinine Clearance 0 mL/min (70-130); Calcium 8.5 mg/dL (7.8-10.44); Carbon Dioxide 27 mmol/L (22-29); Chloride 100 mmol/L (98-107); Estimated GFR 121; Globulin 3.6 g/dL (2.4-3.5); Glucose 92 mg/dL (70-105); Potassium 3.3 mmol/L (3.5-5.1); Sodium 139 mmol/L (136-145)
[2022-05-23 18:15] LABS: Bilirubin Negative (Negative); Blood, Urine Negative (Negative); Clarity Clear (Clear); Glucose, Urine (Dipstick) Normal (Negative); Ketone, Urine 10 mg/dL (Negative); Leukocyte 75 Leu/uL (Negative); Nitrite Negative (Negative); Protein, Urine (Dipstick) 30 mg/dL (Neg-Trace); RBC/HPF 0-3 HPF (0-3); Urobilinogen Normal mg/dL (Less than 2)
[2022-05-23 18:17] LABS: Specific Gravity, Urine 1.052 (1.002-1.036)
[2022-05-23 18:18] LABS: Bacteria/HPF Rare-Few HPF (None Seen)
[2022-05-23] MEDS ORDERED: Ondansetron PF 4 MG/2 ML Vial IVP PRN (21:00)
[2022-05-23] MEDS ORDERED: Acetaminophen 325 MG TAB PO PRN (21:00)
[2022-05-23] MEDS ORDERED: Ondansetron ODT 4 MG TAB SL PRN (21:00)
[2022-05-23] MEDS ORDERED: Melatonin 3 MG TAB PO PRN (23:15)
[2022-05-23] MEDS ORDERED: Polyethylene Glycol 3350 17 GM Packet PO PRN (23:15)
[2022-05-24] MEDS: Meropenem 1 GM in Sodium Chloride 0.9% 100 ML IVPB SCH ×5 (00:17→22:35)
[2022-05-24] MEDS ORDERED: levETIRAcetam 500 MG TAB PO SCH (00:45)
[2022-05-24] MEDS ORDERED: lamoTRIgine 100 MG TAB PO SCH ×2 (00:45→09:00)
[2022-05-24] MEDS ORDERED: lamoTRIgine 25 MG TAB PO SCH ×2 (00:45→09:00)
[2022-05-24] MEDS ORDERED: Loratadine 10 MG TAB PO SCH (01:00)
[2022-05-24] MEDS: traMADol HCl 50 MG TAB PO PRN ×3 (01:06→17:52)
[2022-05-24] MEDS: Fluconazole In NaCl,Iso-Osm 400 MG in Premix Bag 1 BAG IVPB SCH ×2 (01:07→23:42)
[2022-05-24 07:02] LABS: #Lymphocytes 0.9 thou/uL (1.20-3.40); #Monocytes 0.5 thou/uL (0.11-0.59); #Neutrophils 7.9 thou/uL (1.40-6.50); %Basophils 0.2 % (0.0-1.0); %Eosinophils 0.2 % (0.0-10.0); %Lymphocytes 9.2 % (21.0-51.0); %Monocytes 5.5 % (0.0-10.0); %Neutrophils 84.9 % (42.0-75.0); Hemoglobin 7.3 g/dL (12.0-16.0); Mean Corpuscular HGB CONC 31.4 g/dL (32.0-36.0); Mean Corpuscular Hemoglobin 30.5 pg (27.0-31.0); Mean Corpuscular Volume 97.4 fL (78.0-98.0); Mean Platelet Volume 7.6 fL (7.4-10.4); Platelet Count 425 thou/uL (130-400); RBC Distribution Width 16.9 % (11.5-14.5); White Blood Cell (WBC) Count 9.3 thou/uL (4.8-10.8)
[2022-05-24 07:26] LABS: SARS-CoV-2 NAA Rapid Test Not Detected (NotDetected)
[2022-05-24 07:37] LABS: INR-International Normal Ratio 1.2; Prothrombin Time 15.3 sec (12.0-14.7)
[2022-05-24 07:38] LABS: PTT 55.4 sec (22.9-36.1)
[2022-05-24] MEDS ORDERED: Fluconazole In NaCl,Iso-Osm 400 MG in Premix Bag 1 BAG IVPB SCH (09:00)
[2022-05-24] MEDS: levETIRAcetam 500 MG TAB PO SCH ×2 (10:14→20:47)
[2022-05-24] MEDS: Cholecalciferol (Vitamin D3) 400 UNITS TAB PO SCH (10:15)
[2022-05-24] MEDS: Cyanocobalamin (Vitamin B-12) 1,000 MCG TAB PO SCH (10:15)
[2022-05-24] MEDS: Folic Acid 1 MG TAB PO SCH (10:17)
[2022-05-24] MEDS: Ferrous Sulfate 325 MG TAB PO SCH (10:17)
[2022-05-24] MEDS: Sodium Chloride 0.9% 1,000 ML IV SCH ×2 (10:27→17:31)
[2022-05-24] MEDS: lamoTRIgine 25 MG TAB PO SCH ×2 (10:27→20:48)
[2022-05-24] MEDS: Acetaminophen 500 MG TAB PO PRN ×2 (11:33→16:31)
[2022-05-24] MEDS: lamoTRIgine 100 MG TAB PO SCH ×2 (11:42→20:48)
[2022-05-24] MEDS ORDERED: Cyanocobalamin 1000 MCG/ML VIAL IM SCH (14:00)
[2022-05-24] MEDS ORDERED: Lidocaine 1%/Epinephrine 1:100K 10 ML VIAL FS SCH (14:45)
[2022-05-24 14:49] LABS: Iron 10 ug/dL (50-170); Iron Binding Capacity, Total 69 mcg/dL (265-497)
[2022-05-24] MEDS ORDERED: Ondansetron ODT 4 MG TAB PO PRN (15:35)
[2022-05-24 15:39] LABS: Ferritin 789.02 ng/mL (10-291)
[2022-05-24 15:49] LABS: Vitamin B12 Greater than 2000 pg/mL (211-911)
[2022-05-24] MEDS: Multivitamins, Adult 10 ML, Folic Acid 1 MG, Thiamine HCl 100 MG in Dextrose 5 %-0.45 %... IV SCH ×2 (16:09→16:28)
[2022-05-24] MEDS ORDERED: Iron Sucrose Complex 200 MG in Sodium Chloride 0.9% 100 ML IVPB SCH (16:30)
[2022-05-24] MEDS: Thiamine HCl 200 MG/2 ML VIAL SLOW IVP SCH (17:57)
[2022-05-24] MEDS ORDERED: Iron, Sodium Ferric Gluconate 250 MG in Sodium Chloride 0.9% 250 ML 250 ML IVPB SCH (18:00)
[2022-05-24] MEDS: Loratadine 10 MG TAB PO SCH (20:48)
[2022-05-24] MEDS: Enoxaparin Sodium 40 MG/0.4 ML SYRINGE SC SCH (20:51)
[2022-05-25] MEDS: Sodium Chloride 0.9% 1,000 ML IV SCH ×2 (04:00→16:47)
[2022-05-25 05:35] LABS: Anion Gap 15 mmol/L (10-20); BUN (Urea Nitrogen) 4 mg/dL (7.0-18.7); Calc. Creatinine Clearance 148 mL/min (70-130); Calcium 7.9 mg/dL (7.8-10.44); Carbon Dioxide 26 mmol/L (22-29); Chloride 101 mmol/L (98-107); Estimated GFR 123; Glucose 91 mg/dL (70-105); Potassium 3.2 mmol/L (3.5-5.1); Sodium 139 mmol/L (136-145)
[2022-05-25 05:52] LABS: #Lymphocytes 0.7 thou/uL (1.20-3.40); #Monocytes 0.5 thou/uL (0.11-0.59); #Neutrophils 5.8 thou/uL (1.40-6.50); %Basophils 0.3 % (0.0-1.0); %Eosinophils 0.5 % (0.0-10.0); %Lymphocytes 9.3 % (21.0-51.0); %Neutrophils 82.9 % (42.0-75.0)
[2022-05-25 05:53] LABS: Hemoglobin 8.3 g/dL (12.0-16.0); Mean Corpuscular HGB CONC 30.4 g/dL (32.0-36.0); Mean Corpuscular Hemoglobin 29.4 pg (27.0-31.0); Mean Corpuscular Volume 96.7 fL (78.0-98.0); Mean Platelet Volume 7.8 fL (7.4-10.4); Platelet Count 401 thou/uL (130-400); RBC Distribution Width 16.6 % (11.5-14.5); Red Blood Cell (RBC) Count 2.84 mill/uL (4.20-5.40); White Blood Cell (WBC) Count 7.2 thou/uL (4.8-10.8)
[2022-05-25] MEDS: traMADol HCl 50 MG TAB PO PRN ×2 (07:57→14:09)
[2022-05-25] MEDS: Meropenem 1 GM in Sodium Chloride 0.9% 100 ML IVPB SCH ×3 (07:58→23:53)
[2022-05-25] MEDS ORDERED: Potassium Chloride 20 MEQ TAB PO SCH (08:00)
[2022-05-25] MEDS: Cyanocobalamin (Vitamin B-12) 1,000 MCG TAB PO SCH (09:24)
[2022-05-25] MEDS: Folic Acid 1 MG TAB PO SCH (09:24)
[2022-05-25] MEDS: Cholecalciferol (Vitamin D3) 400 UNITS TAB PO SCH (09:25)
[2022-05-25] MEDS: Ferrous Sulfate 325 MG TAB PO SCH (09:25)
[2022-05-25] MEDS: lamoTRIgine 25 MG TAB PO SCH ×2 (09:27→21:30)
[2022-05-25] MEDS: levETIRAcetam 500 MG TAB PO SCH ×3 (09:28→21:31)
[2022-05-25] MEDS: lamoTRIgine 100 MG TAB PO SCH ×2 (11:37→21:42)
[2022-05-25] MEDS: Acetaminophen 500 MG TAB PO PRN ×3 (12:09→21:31)
[2022-05-25 13:32] VITALS: BMI 23.1
[2022-05-25] MEDS: Thiamine HCl 200 MG/2 ML VIAL SLOW IVP SCH (16:47)
[2022-05-25] MEDS: Loratadine 10 MG TAB PO SCH (21:32)
[2022-05-25] MEDS: Lorazepam 1 MG TAB PO PRN (21:32)
[2022-05-25] MEDS: Enoxaparin Sodium 40 MG/0.4 ML SYRINGE SC SCH (21:42)
[2022-05-26] MEDS: Sodium Chloride 0.9% 1,000 ML IV SCH ×2 (00:30→11:05)
[2022-05-26] MEDS: Fluconazole In NaCl,Iso-Osm 400 MG in Premix Bag 1 BAG IVPB SCH (00:30)
[2022-05-26] MEDS: Folic Acid 1 MG TAB PO SCH (09:08)
[2022-05-26] MEDS: Ferrous Sulfate 325 MG TAB PO SCH (09:09)
[2022-05-26] MEDS: lamoTRIgine 100 MG TAB PO SCH (09:09)
[2022-05-26] MEDS: levETIRAcetam 500 MG TAB PO SCH (09:10)
[2022-05-26] MEDS: Acetaminophen 500 MG TAB PO PRN (09:10)
[2022-05-26] MEDS: Cholecalciferol (Vitamin D3) 400 UNITS TAB PO SCH (09:11)
[2022-05-26] MEDS: lamoTRIgine 25 MG TAB PO SCH (09:11)
[2022-05-26] MEDS: Cyanocobalamin (Vitamin B-12) 1,000 MCG TAB PO SCH (09:11)
[2022-05-26] MEDS: Meropenem 1 GM in Sodium Chloride 0.9% 100 ML IVPB SCH ×2 (09:11→17:07)
[2022-05-26 09:45] LABS: #Lymphocytes 0.7 thou/uL (1.20-3.40); #Monocytes 0.3 thou/uL (0.11-0.59); #Neutrophils 4.9 thou/uL (1.40-6.50); %Basophils 0.3 % (0.0-1.0); %Eosinophils 0.4 % (0.0-10.0); %Monocytes 5.7 % (0.0-10.0); %Neutrophils 81.7 % (42.0-75.0); Hemoglobin 8.7 g/dL (12.0-16.0); Mean Corpuscular HGB CONC 30.4 g/dL (32.0-36.0); Mean Corpuscular Hemoglobin 29.8 pg (27.0-31.0); Mean Corpuscular Volume 98.2 fL (78.0-98.0); Mean Platelet Volume 7.3 fL (7.4-10.4); Platelet Count 449 thou/uL (130-400); RBC Distribution Width 16.5 % (11.5-14.5); Red Blood Cell (RBC) Count 2.92 mill/uL (4.20-5.40)
[2022-05-26] MEDS: Lorazepam 1 MG TAB PO PRN (10:04)
[2022-05-26] MEDS: Multivitamins, Adult 10 ML, Folic Acid 1 MG, Thiamine HCl 100 MG in Dextrose 5 %-0.45 %... IV SCH (14:31)
[2022-05-26] MEDS: Thiamine HCl 200 MG/2 ML VIAL SLOW IVP SCH (14:36)
[2022-05-26 16:20] VITALS: BP 107/71; TEMP 98.1
== END 2022-05-26 19:10 | disposition home or self-care (01) | DRG 863 ==
LOC: ERS 12:19 → SURG B 18:50 → OBSVTOIN 05-25 13:18
PROVIDERS: ADMIT Specialist; ATTEND Specialist
PROC: 30233N1 Transfusion of Nonautologous Red Blood Cells into Peripheral Vein, Percutaneous Approach (ICD-10-PCS; 2022-05-24)
PROC: 0J980ZZ Drainage of Abdomen Subcutaneous Tissue and Fascia, Open Approach (ICD-10-PCS; principal; 2022-05-25)
DX: T81.49XA Infection following a procedure, other surgical site, initial encounter (principal); E46 Unspecified protein-calorie malnutrition; Y83.8 Other surgical procedures as the cause of abnormal reaction of the patient, or of later complication, without mention of misadventure at the time of the procedure; D50.9 Iron deficiency anemia, unspecified; Z91.010 Allergy to peanuts; Z91.040 Latex allergy status; Q03.9 Congenital hydrocephalus, unspecified; Z68.23 Body mass index [BMI] 23.0-23.9, adult
CPT/HCPCS: 36415; 36430; 70450; 71045; 74177; 80048; 80053; 81003; 81015; 82607; 82728; 83540; 83550; 83605; 84484; 85025; 85610; 85730; 86850; 86900; 86901; 87070; 87205; 93005; 94760; 96372; 96374; 96375; 96376; 97139; G0378; J1450; J1650; J2185; J2916; J3411; J3490; J7042; J7050; P9016; Q9967; U0002